=== PATIENT | male | born 1995 | race Two or more races ===

== ENCOUNTER 2025-04-16 07:05 | Emergency (ER) | payer MEDICAID, SELFPAY ==
[2025-04-16 07:07] VITALS: BMI 51.8
--- NOTE | 2025-04-16 07:10 | EKG_ITS ---
[facility] Test Date: 2025-04-16 Pat Name: EMELY CHAPA Department: Room: - Gender: Male [employer]: : 1995 Requested By: ED Temporary Provider Order Number: [id number] Reading MD: ED Temporary Provider Measurements Intervals [place] Rate: 86 P: 72 VT: 148 QRS: -19 QRSD: 107 T: 37 QT: 373 QTc: 446 Interpretive Statements SINUS RHYTHM No previous ECG available for comparison /store/S0/[id number]/ecg/[id number].pdf
[2025-04-16 07:49] VITALS: BP 149/98; PULSE 95; RESP 18; TEMP 37.3; O2SAT 98
--- NOTE | 2025-04-16 08:05 | XR_ITS ---
Examination: PA lateral chest 2 views Technique: Upright PA lateral chest 2 views Date and time: at 0820 hrs. Comparison February 23, 2020 Indication: Chest pain coughing beginning one week ago. Findings: Normal heart size. Lungs are clear. The osseous structures are intact. Impression: No active disease.
--- NOTE | 2025-04-16 08:06 | PD.EDRME ---
Rapid Medical Screening Exam RME Arrival date/time: 04/16/25 07:05 Chief Complaint: Chest Pain Time Seen by Provider: 04/16/25 07:16 Vital signs: Vital Signs Temperature 99.1 F 04/16/25 07:49 Pulse Rate 95 04/16/25 07:49 Respiratory Rate 18 04/16/25 07:49 Blood Pressure 149/98 H 04/16/25 07:49 Pulse Oximetry (%) 98 04/16/25 07:49 Oxygen Delivery Method Room Air 04/16/25 07:49 Vital signs reviewed by provider: Yes RME Narrative: 30-year-old male with past medical history of hypertension (noncompliant with medication) presents with intermittent chest pain that radiates around his left arm x 1 week. Patient endorses nonproductive cough.
[2025-04-16 08:53] LABS: Collection Type, Urine Clean Catch
[2025-04-16 08:59] LABS: Bilirubin,Urine Negative (Negative); Blood,Urine Negative (Negative); Clarity,Urine Clear (Clear/Hazy); Color,Urine Lt-Yellow (Lt Yel-Yel); Glucose, Urine Trace (Negative); Hyaline Casts,Urine < 1 /hpf (0-1); Ketones,Urine Negative (Negative); Leukocyte Esterase,Urine Negative (Negative); Nitrite,Urine Negative (Negative); PH,Urine 6.5 (5.0-7.0); Protein,Urine Negative (Neg - Trace); RBC,Urine 2 /hpf (0-3); Specific Gravity,Urine 1.023 (1.001-1.035); Squamous Epithelial Cell,Urine < 1 /hpf (0-5); Urobilinogen,Urine Negative mg/dL (0.0-1.0); WBC,Urine 1 /hpf (0-5)
[2025-04-16 09:09] LABS: Amphetamine/Methamp Scrn,U Negative (Negative); Barbiturate Screen,Urine Negative (Negative); Benzodiazepines Screen,Urine Negative (Negative); Benzoylecgonine Screen, Ur Negative (Negative); Fentanyl Screen,Urine Negative (Negative); Opiate Screen,Urine Negative (Negative); THC Screen,Urine Negative (Negative)
[2025-04-16 09:50] LABS: Basophils % (Auto) 0 % (0-2.5); Eosinophils # (Auto) 0.1 Thou/mm3 (0.0-0.5); Eosinophils % (Auto) 1 % (0-10); Hematocrit 50.4 % (41.0-53.0); Hemoglobin 16.4 g/dL (13.5-16.0); Immature Granulocytes % (Auto) 0 % (0-0); Immature Granulocytes Auto 0.02 Thou/mm3 (0.00-0.00); Lymphocytes # (Auto) 2.5 Thou/mm3 (1.0-4.8); Lymphocytes % (Auto) 25 % (10-50); Mean Corpuscular HGB Conc 32.5 g/dl (31.0-37.0); Mean Corpuscular Hemoglobin 26.6 pg (25.0-35.0); Mean Corpuscular Volume 82 fL (80-100); Monocytes # (Auto) 0.5 Thou/mm3 (0.0-0.8); Monocytes % (Auto) 5 % (0-12); Neutrophils # (Auto) 6.8 Thou/mm3 (1.8-7.7); Neutrophils % (Auto) 68 % (37-80); Nucleated Red Blood Cell % 0 /100 WBC (0); Platelet Count 319 Thou/mm3 (140-440); RDW Standard Deviation 39.8 fL (35.1-43.9); Red Blood Count 6.16 Miln/mm3 (4.50-5.90)
--- NOTE | 2025-04-16 10:00 | PD.EDADULT ---
ED General RME/HPI General Chief complaint: Chest Pain Stated complaint: LT CHEST AND SHOULDER PAIN, DIZZY, BLURRY VISION Time Seen by Provider: 04/16/25 07:16 Arrival date/time: 04/16/25 07:05 Limitations: no limitations RME / HPI RME / HPI narrative: 30-year-old male with past medical history of hypertension (noncompliant with medication) presents with intermittent chest pain that radiates around his left arm x 1 week. Patient endorses nonproductive cough. DR. VILLATORO MAIN ED EVALUATION: 30 year old male presents to the Emergency Department with complaint of left-sided chest pressure and soreness onset 1 week ago. A week ago, he was leaning on his left side for a while, sitting on the couch, and then pain started. Patient also mentions that he stopped taking his hypertension medications because he did not like how it made him feel, jittery . Other symptoms reported include a headache and dizziness. Related Data Previous Rx's ?Medication ?Instructions ?Recorded sulfamethoxazole 800 1 tab PO BID #20 tabs 08/02/23 mg-trimethoprim 160 mg tablet (Bactrim DS) Allergies Allergy/AdvReac Type Severity Reaction Status Date / Time RED MEAT Allergy Hypertensio Uncoded 04/16/25 07:07 n Review of Systems Review of Systems Systems Reviewed: All systems reviewed, normal except as documented Past Medical History Social History SMOKING STATUS: Never smoker SUBSTANCE USE: marijuana ALCOHOL: Never ED Exam General Limitations: Present no limitations General appearance: Present alert and in no apparent distress Head Head exam: Present atraumatic, normocephalic and normal inspection Eye Eye exam: Present normal appearance, PERRL and EOMI ENT ENT exam: Present normal exam, normal oropharynx and mucous membranes moist Neck Neck exam: Present normal inspection, full ROM and trachea midline Chest Chest inspection: Present symmetric chest wall rise and tenderness (mild tenderness to palpation of the deltoid muscle) Respiratory Respiratory exam: Present normal lung sounds bilaterally Cardiovascular Cardiovascular exam: Present regular rate, normal rhythm and normal heart sounds Abdominal Exam Abdominal exam: Present soft and normal bowel sounds Extremities Exam Extremities exam: Present normal inspection and full ROM Back Exam Back exam: Present normal inspection and full ROM Neurological Exam Neurological exam: Present alert, oriented X3 and CN II-XII intact Psychiatric Psychiatric exam: Present normal affect and normal mood Skin Skin exam: Present warm, dry, intact and normal color Course Quality Measures none Orders Category Date Time Status EKG (ED ONLY) *Do not use* NOW Care 04/16/25 07:10 Completed EKG (ED Only) Stat Exams 04/16/25 07:10 Draft XR chest 2V Stat Exams 04/16/25 08:05 Completed B-Type Natriuretic Peptide Stat Lab 04/16/25 09:27 Completed CBC Stat Lab 04/16/25 09:27 Completed Comprehensive Metabolic Panel Stat Lab 04/16/25 09:27 Completed Drug Screen,Urine Stat Lab 04/16/25 08:28 Completed LDH (Lactate Dehydrogenase) Stat Lab 04/16/25 09:27 Completed Magnesium Stat Lab 04/16/25 09:27 Completed Partial Thromboplastin Time Stat Lab 04/16/25 09:27 Completed Prothrombin Time with INR Stat Lab 04/16/25 09:27 Completed Troponin I Stat Lab 04/16/25 09:27 Completed Urinalysis Stat Lab 04/16/25 08:28 Completed Vital Signs Vital signs: Vital Signs Temperature 99.1 F 04/16/25 07:49 Pulse Rate 95 04/16/25 07:49 Respiratory Rate 18 04/16/25 07:49 Blood Pressure 149/98 H 04/16/25 07:49 Pulse Oximetry (%) 98 04/16/25 07:49 Oxygen Delivery Method Room Air 04/16/25 07:49 Discharge Plan Plan Patient Disposition: HOME (Self Care) Prescriptions/Referrals Prescriptions/Med Rec: No Action sulfamethoxazole-trimethoprim [Bactrim DS] 800-160 mg tablet 1 tab PO BID Qty: 20 0RF Referrals: No Primary/Family,Physician [Primary Care Provider] - In 1 week Problem List Clinical Impression: Non-cardiac chest pain Patient/Caregiver Discharge Instructions Discharge Activity: as per physical therapy Education Materials: ED Chest Pain, Noncardiac Print Language: Vincentian Stand Alone Forms: Linette Award Info., Patient Portal Info Letter MDM Clinical Information Provided by patient Medical Records Reviewed [facility] Meds/Rx Considered, not Ordered None Labs/Rad/Tests considered, not Ordered None Chronic Illness/Social Conditions Add or document further as needed: Hypertension, noncompliant with medications EKG EKG Interpretation narrative: My interpretation: EKG performed at 0755 hours, sinus rhythm, rate 86, no STEMI Imaging Radiology reports / interpretation(s): Procedure(s): XR chest 2V Accession Number(s): [id number] cc: Shantanu Simpson PA-C; Curtis Heath MD; NO PRIMARY/FAMILY,PHYSICIAN~ Examination: PA lateral chest 2 views Technique: Upright PA lateral chest 2 views Date and time: at 0820 hrs. Comparison February 23, 2020 Indication: Chest pain coughing beginning one week ago. Findings: Normal heart size. Lungs are clear. The osseous structures are intact. Impression: No active disease. Dictated By: Curtis Heath MD Medication Administration(s) none Diagnosis Differential diagnosis: muscle strain, costochondritis, atypical chest pain Most likely dx, and/or detailed dx discussion: Non-cardiac chest pain Dispositon Disposition: Discharge Home
[2025-04-16 10:02] LABS: B-Type Natriuretic Peptide < 20 pg/mL (0-100)
[2025-04-16 10:04] LABS: Alanine Aminotransferase 47 U/L (10-49); Albumin, Serum 4.8 gm/dL (3.5-5.0); Albumin/Globulin Ratio 1.5 (1.2-2.2); Alkaline Phosphatase 100 U/L (46-116); Anion Gap 10 (7-16); Aspartate Amino Transferase 22 U/L (0-34); BUN/Creatinine Ratio 8 Ratio (12-20); Bilirubin,Total 0.4 mg/dL (0.3-1.2); Blood Urea Nitrogen 8 mg/dL (9-23); Calcium 9.6 mg/dL (8.3-10.6); Calcium (Corrected) 9.6 mg/dL (8.5-10.1); Carbon Dioxide 25.5 mMol/L (20.0-31.0); Chloride 105 mMol/L (98-107); Estimated Creatinine Clearance 155.8 mL/min (>60); Globulin 3.3 gm/dL (2.3-3.5); Glucose 217 mg/dL (74-106); LDH (Lactate Dehydrogenase) 180 U/L (120-246); Osmolality,Calculated 284 (275-295); Sodium 140 mMol/L (136-145); Total Protein 8.1 gm/dL (5.7-8.2); Troponin I < 0.002 ng/mL (0.0-0.045); eGFR > 60 See Note
[2025-04-16 10:36] LABS: Partial Thromboplastin Time 28.9 Seconds (22.0-36.0); Prothrombin Time 10.9 Seconds (9.0-12.2)
== END 2025-04-16 10:33 | disposition home or self-care (01) ==
PROVIDERS: Physician Assistant; Emergency Provider Emergency Medicine
DX: R07.89 Other chest pain (principal); I10 Essential (primary) hypertension; T46.5X6A Underdosing of other antihypertensive drugs, initial encounter
CPT/HCPCS: 36415; 71046; 80053; 80307; 81001; 83615; 83735; 83880; 84484; 85025; 85610; 85730; 93005; 99283